=== PATIENT | male | born 1980 | race Caucasian/White ===

== ENCOUNTER 2017-09-13 10:01 | Emergency (ER) | payer SELFPAY ==
[2017-09-13 10:20] VITALS: BP 147/86
--- NOTE | 2017-09-13 22:03 | EKG REPORT ---
SEVERITY:- ABNORMAL ECG - SINUS RHYTHM NONSPECIFIC T ABNORMALITIES, INFERIOR LEADS : Confirmed by: Kiersten Pereira 13-Sep-2017 22:02:50
== END 2017-09-13 10:42 | disposition left against medical advice (07) ==
LOC: ER 10:01
DX: Z53.21 Procedure and treatment not carried out due to patient leaving prior to being seen by health care provider (principal)
CPT/HCPCS: 93005; 93010

== ENCOUNTER 2018-09-08 05:08 | Emergency (ER) | payer SELFPAY ==
[2018-09-08] MEDS ORDERED: KETOROLAC TROMETHAMINE INJ/PF 30 MG/1 ML SDV IV ONE (05:30)
--- NOTE | 2018-09-08 05:33 | ER Document Report ---
ED Medical Screen (RME) - General Chief Complaint: Upper Abdominal Pain Stated Complaint: RIB PAIN Time Seen by Provider: 09/08/18 05:25 Notes: Patient is a 38-year-old male that comes to the emergency department for chief complaint of right upper quadrant pain that began 2 hours ago. He points specifically to the right upper quadrant area, denies radiation. He denies nausea, vomiting, fever or chills. He had a normal bowel movement 1 hour ago. Denies any surgeries, denies any daily medications, reports infrequent alcohol. TRAVEL OUTSIDE OF THE [place] IN LAST 30 DAYS: No - Related Data Allergies/Adverse Reactions: No Known Allergies Allergy (Verified 09/08/18 05:21) Past Medical History - Immunizations Hx Diphtheria, Pertussis, Tetanus Vaccination: No Physical Exam - Vital signs Vitals: Temp Pulse Resp BP Pulse Ox 97.7 F 84 22 H 154/99 H 96 09/08/18 05:13 09/08/18 05:13 09/08/18 05:13 09/08/18 05:13 09/08/18 05:13 - General General appearance: Appears well In distress: None - Abdominal Tenderness: Tender - Mildly tender in the right upper quadrant, remaining abdomen benign Course - Vital Signs Vital signs: Temp Pulse Resp BP Pulse Ox 97.7 F 84 22 H 154/99 H 96 09/08/18 05:13 09/08/18 05:13 09/08/18 05:13 09/08/18 05:13 09/08/18 05:13
[2018-09-08 06:04] LABS: ABSOLUTE BASOPHILS # (AUTO) 0.1 10^3/uL (0.0-0.2); ABSOLUTE EOSINOPHILS # (AUTO) 0.2 10^3/uL (0.0-0.6); ABSOLUTE LYMPHOCYTES (AUTO) 2.2 10^3/uL (0.5-4.7); ABSOLUTE MONOCYTES (AUTO) 0.6 10^3/uL (0.1-1.4); ABSOLUTE NEUT (AUTO) 6.6 10^3/uL (1.7-8.2); BASOPHILS % (AUTO) 0.9 % (0-2); EOSINOPHILS % (AUTO) 2.1 % (0-6); HEMATOCRIT 49.7 % (37.9-51.0); HEMOGLOBIN 17.5 g/dL (13.5-17.0); LYMPHOCYTES % (AUTO) 22.7 % (13-45); MEAN CORPUSCULAR HGB CONC 35.1 g/dL (32.0-36.0); MEAN CORPUSCULAR VOLUME 88 fl (80-97); MONOCYTES % (AUTO) 6.6 % (3-13); PLATELET COUNT 131 10^3/uL (150-450); RED BLOOD COUNT 5.63 10^6/uL (4.35-5.55); SEGMENTED NEUTROPHILS % (AUTO) 67.7 % (42-78); TOTAL CELLS COUNTED % (AUTO) 100 %; WHITE BLOOD COUNT 9.8 10^3/uL (4.0-10.5)
--- NOTE | 2018-09-08 06:06 | ER Document Report ---
ED General - General Chief Complaint: Upper Abdominal Pain Stated Complaint: RIB PAIN Time Seen by Provider: 09/08/18 05:25 Notes: 38-year-old male with no significant past medical history presents with 2 hours of right upper quadrant pain, sharp, radiating under his rib, nonpleuritic without nausea vomiting but with positive anorexia. No fever. No history of gallbladder issues. No lower abdominal pain. No diarrhea foreign travel or abd ominal surgeries. TRAVEL OUTSIDE OF THE [place] IN LAST 30 DAYS: No - Related Data Allergies/Adverse Reactions: No Known Allergies Allergy (Verified 09/08/18 05:21) Past Medical History - Social History Smoking Status: Never Smoker Family History: Reviewed & Not Pertinent - Immunizations Hx Diphtheria, Pertussis, Tetanus Vaccination: No Review of Systems - Review of Systems Notes: REVIEW OF SYSTEMS GEN: Denies fever, chills, weight loss ENT: Denies sore throat, nasal discharge, ear pain EYES: Denies blurry vision, eye pain, discharge CV: Denies chest pain, palpitations, edema RESP: Denies cough, shortness of breath, wheezing GI: Abdominal pain MSK: Denies joint pain/swelling, edema, SKIN: Denies rash, skin lesions LYMPH: Denies swollen glands/lymph nodes NEURO: Denies headache, focal weakness or numbness, dizziness PSYCH: Denies depression, suicidal or homicidal ideation PHYSICAL EXAMINATION General: No acute distress, well-nourished Head: Atraumatic, normocephalic ENT: Mouth normal, oropharynx moist, no exudates or tonsillar enlargement Eyes: Conjunctiva normal, pupils equal, lids normal Neck: No JVD, supple, no guarding CVS: Normal rate, regular rhythm, no murmurs Resp: No resp distress, equal and normal breath sounds bilaterally GI: Nondistended, soft, upper quadrant tenderness to palpation, no rebound or guarding Ext: No deformities, no edema, normal range of motion in upper and lower ext Back: No CVA or midline TTP Skin: No rash, warm Lymphatic: No lymphadeopathy noted Neuro: Awake, alert. Face symmetric. GCS 15. Physical Exam - Vital signs Vitals: Temp Pulse Resp BP Pulse Ox 97.7 F 84 22 H 154/99 H 96 09/08/18 05:13 09/08/18 05:13 09/08/18 05:13 09/08/18 05:13 09/08/18 05:13 Course - Re-evaluation Re-evalutation: 09/08/18 07:46 Upper quadrant pain with mild tenderness no fever. Ultrasound shows stones. Labs are normal. Reassessed at 7:45 AMfeeling better. Nontender on repeat exam tolerated p.o. Discharge home cholelithiasis refer to surgery. I have discussed with the patient there likely diagnosis, aftercare plan, follow-up plans and my usual and customary return precautions. They verbalized understanding of this. - Vital Signs Vital signs: Temp Pulse Resp BP Pulse Ox 97.7 F 84 22 H 154/99 H 96 09/08/18 05:13 09/08/18 05:13 09/08/18 05:13 09/08/18 05:13 09/08/18 05:13 - Laboratory Result Diagrams: 09/08/18 05:50 09/08/18 05:50 Laboratory results interpreted by me: 09/08/18 09/08/18 05:50 05:50 RBC 5.63 H Hgb 17.5 H Plt Count 131 L Chloride 109 H Total Protein 6.2 L - Diagnostic Test Radiology reviewed: Image reviewed, Reports reviewed Discharge - Discharge Clinical Impression: Cholelithiasis Qualifiers: Cholelithiasis location: gallbladder Cholecystitis presence: without cholecystitis Biliary obstruction: without biliary obstruction Qualified Code(s): K80.20 - Calculus of gallbladder without cholecystitis without obstruction Condition: Good Disposition: HOME, SELF-CARE Instructions: Gallbladder Disease ([facility]) Referrals: SURGERY [Provider Group] - Follow up as needed
[2018-09-08 06:23] LABS: ALANINE AMINOTRANSFERASE 31 U/L (21-72); ALBUMIN 3.7 g/dL (3.5-5.0); ALKALINE PHOSPHATASE 61 U/L (38-126); ASPARTATE AMINO TRANSFERASE 20 U/L (17-59); BILIRUBIN,DIRECT 0.2 mg/dL (0.0-0.4); BILIRUBIN,TOTAL 0.5 mg/dL (0.2-1.3); BLOOD UREA NITROGEN 17 mg/dL (7-20); CALCIUM 8.9 mg/dL (8.4-10.2); GLUCOSE 100 mg/dL (75-110); LIPASE 198.3 U/L (23-300); POTASSIUM 4.1 mmol/L (3.6-5.0); TOTAL PROTEIN 6.2 g/dL (6.3-8.2)
[2018-09-08 06:40] LABS: ANION GAP 5 (5-19); CARBON DIOXIDE 26 mmol/L (22-30); CHLORIDE 109 mmol/L (98-107); SODIUM 139.7 mmol/L (137-145)
--- NOTE | 2018-09-08 07:20 | RADIOLOGY REPORT (SQ) ---
EXAM DESCRIPTION: US ABDOMEN LIMITED COMPLETED DATE/TME: 09/08/2018 05:30 CLINICAL HISTORY: 38 years Male, RUQ pain Comparison: None. LIMITATIONS: Bowel gas artifact. FINDINGS: Cholelithiasis, negative sonographic Ariza's test, liver, a 0.3-cm diameter common bile duct, no intrahepatic ductal dilation, 12-cm right kidney, obscured pancreas, visualized vasculature/abdominal aorta, and no significant ascites appear otherwise unremarkable. IMPRESSION: No acute findings. Cholelithiasis. Limitation.
[2018-09-08 09:11] VITALS: BP 115/78
== END 2018-09-08 09:12 | disposition home or self-care (01) ==
LOC: ER 05:08
DX: K80.20 Calculus of gallbladder without cholecystitis without obstruction (principal); R10.11 Right upper quadrant pain; R63.0 Anorexia
CPT/HCPCS: 99284; 96374; 36415; 83690; 85025; 80053; 76705; J1885

== ENCOUNTER 2018-11-29 03:25 | Emergency (ER) | payer SELFPAY ==
--- NOTE | 2018-11-29 04:36 | ER Document Report ---
Doctor's Note Notes: 11/29/18 04:32 I performed a quick triage evaluation the patient. Patient is 38-year-old male presents with complaint of right upper quadrant epigastric abdominal pain that started after eating spaghetti tonight. Some nausea. No vomiting. No fevers. No diarrhea. He had somewhat similar symptoms in the past and was told it is probably related to his gallbladder. He is never had any surgeries on his abdomen. He does not take any medications. He does smoke. Does not drink alcohol. On exam patient has some mild pain to palpation the right upper quadrant. Remainder of abdomen is nontender. Currently does not want any pain medicine at this time. CBC CMP and lipase have been ordered. Ultrasound of his gallbladder is been ordered. Dictation of this chart was performed using voice recognition software; therefore, there may be some unintended grammatical errors.
[2018-11-29 04:38] LABS: ABSOLUTE BASOPHILS # (AUTO) 0.1 10^3/uL (0.0-0.2); ABSOLUTE EOSINOPHILS # (AUTO) 0.2 10^3/uL (0.0-0.6); ABSOLUTE LYMPHOCYTES (AUTO) 2.4 10^3/uL (0.5-4.7); ABSOLUTE MONOCYTES (AUTO) 0.7 10^3/uL (0.1-1.4); ABSOLUTE NEUT (AUTO) 7.6 10^3/uL (1.7-8.2); BASOPHILS % (AUTO) 0.8 % (0-2); EOSINOPHILS % (AUTO) 2.1 % (0-6); HEMATOCRIT 47.7 % (37.9-51.0); HEMOGLOBIN 16.1 g/dL (13.5-17.0); LYMPHOCYTES % (AUTO) 21.9 % (13-45); MEAN CORPUSCULAR HGB CONC 33.8 g/dL (32.0-36.0); MEAN CORPUSCULAR VOLUME 89 fl (80-97); MONOCYTES % (AUTO) 6.7 % (3-13); PLATELET COUNT 138 10^3/uL (150-450); RED BLOOD COUNT 5.37 10^6/uL (4.35-5.55); RED CELL DISTRIBUTION WIDTH 13.5 % (11.5-14.0); SEGMENTED NEUTROPHILS % (AUTO) 68.5 % (42-78); TOTAL CELLS COUNTED % (AUTO) 100 %; WHITE BLOOD COUNT 11.1 10^3/uL (4.0-10.5)
[2018-11-29 05:00] LABS: ALANINE AMINOTRANSFERASE 28 U/L (21-72); ALBUMIN 3.7 g/dL (3.5-5.0); ALKALINE PHOSPHATASE 63 U/L (38-126); ANION GAP 8 (5-19); ASPARTATE AMINO TRANSFERASE 19 U/L (17-59); BILIRUBIN,DIRECT 0.2 mg/dL (0.0-0.4); BILIRUBIN,TOTAL 0.5 mg/dL (0.2-1.3); BLOOD UREA NITROGEN 15 mg/dL (7-20); CALCIUM 9.2 mg/dL (8.4-10.2); CARBON DIOXIDE 26 mmol/L (22-30); CHLORIDE 107 mmol/L (98-107); GLUCOSE 100 mg/dL (75-110); LIPASE 176.4 U/L (23-300); POTASSIUM 4.2 mmol/L (3.6-5.0); TOTAL PROTEIN 6.7 g/dL (6.3-8.2)
--- NOTE | 2018-11-29 05:08 | RADIOLOGY REPORT (SQ) ---
EXAM DESCRIPTION: US ABDOMEN DOPPLER LIMITED COMPLETED DATE/TME: 11/29/2018 04:23 CLINICAL HISTORY: 38 years, Male, RUQ pain COMPARISON: 09/08/2018 ultrasound TECHNIQUE: Limited right upper quadrant ultrasound LIMITATIONS: None. FINDINGS: Liver is homogenous in echotexture without focal lesion. The pancreas, abdominal aorta, inferior vena cava, right kidney are unremarkable. Multiple mobile gallstones. Sludge in the gallbladder lumen. Negative sonographic Ariza sign. No gallbladder wall thickening or pericholecystic fluid. CBD measures 4.5 mm. No ascites IMPRESSION: Sludge and stones in the gallbladder lumen. No sonographic evidence for cholecystitis copyright 2010 [employer]- All Rights Reserved
[2018-11-29 05:55] LABS: APPEARANCE,URINE CLEAR; BILIRUBIN,URINE NEGATIVE (NEGATIVE); COLOR,URINE YELLOW; GLUCOSE, URINE NEGATIVE (NEGATIVE); KETONES,URINE NEGATIVE (NEGATIVE); LEUKOCYTE ESTERASE,URINE NEGATIVE (NEGATIVE); NITRITE,URINE NEGATIVE (NEGATIVE); PROTEIN,URINE NEGATIVE (NEGATIVE); URINE SPECIFIC GRAVITY 1.027; UROBILINOGEN,URINE NEGATIVE mg/dL (<2.0)
[2018-11-29] MEDS ORDERED: KETOROLAC TROMETHAMINE 60 MG/2 ML SDV IM ONE (06:59)
--- NOTE | 2018-11-29 07:01 | ER Document Report ---
ED General - General Chief Complaint: Abdominal Pain Stated Complaint: UPPER GASTRIC PAIN Time Seen by Provider: 11/29/18 04:32 Notes: RME note: I performed a quick triage evaluation the patient. Patient is 38-year-old male presents with complaint of right upper quadrant epigastric abdominal pain that started after eating spaghetti tonight. Some nausea. No vomiting. No fevers. No diarrhea. He had somewhat similar symptoms in the past and was told it is probably related to his gallbladder. He is never had any surgeries on his abdomen. He does not take any medications. He does smoke. Does not drink alcohol. On exam patient has some mild pain to palpation the right upper quadrant. Remainder of abdomen is nontender. Currently does not want any pain medicine at this time. CBC CMP and lipase have been ordered. Ultrasound of his gallbladder is been ordered. MY HPI: Patient overall states his pain has much improved. I have discussed treatment modalities and patient is now wishing for pain medic patient does not have IV access, blood was drawn via straight stick. Discussed use of Toradol IM, patient in agreement with plan. TRAVEL OUTSIDE OF THE [place] IN LAST 30 DAYS: No - Related Data Allergies/Adverse Reactions: No Known Allergies Allergy (Verified 11/29/18 04:43) Past Medical History - General Information source: Patient - Social History Smoking Status: Current Every Day Smoker Frequency of alcohol use: Rare Drug Abuse: None Family History: Reviewed & Not Pertinent Patient has suicidal ideation: No Patient has homicidal ideation: No Renal/ Medical History: Reports: Hx Peritoneal Dialysis - Immunizations Hx Diphtheria, Pertussis, Tetanus Vaccination: No Review of Systems - Review of Systems Constitutional: denies: Fever EENT: No symptoms reported Cardiovascular: No symptoms reported Respiratory: No symptoms reported Gastrointestinal: See HPI Genitourinary: No symptoms reported Male Genitourinary: No symptoms reported Musculoskeletal: No symptoms reported Skin: No symptoms reported Hematologic/Lymphatic: No symptoms reported Neurological/Psychological: No symptoms reported Physical Exam - Notes Notes: GENERAL: Alert, interacts well. No acute distress. HEAD: Normocephalic, atraumatic. EYES: Pupils equal, round, and reactive to light. Extraocular movements intact. ENT: Oral mucosa moist, tongue midline. NECK: Full range of motion. Supple. Trachea midline. LUNGS: Clear to auscultation bilaterally, no wheezes, rales, or rhonchi. No respiratory distress. HEART: Regular rate and rhythm. No murmur ABDOMEN: Soft, minor right upper quadrant pain noted. Non-distended. Bowel sounds present in all 4 quadrants. No McBurney's point tenderness, no left lower quadrant pain noted. EXTREMITIES: Moves all 4 extremities spontaneously. No edema, normal radial and dorsalis pedis pulses bilaterally. No cyanosis. BACK: no cervical, thoracic, lumbar midline tenderness. No saddle anesthesia, normal distal neurovascular exam. NEUROLOGICAL: Alert and oriented x3. Normal speech. cranial nerves II through XII grossly intact PSYCH: Normal affect, normal mood. SKIN: Warm, dry, normal turgor. No rashes or lesions noted. Course - Re-evaluation Re-evalutation: 11/29/18 07:01 Abdomen Ultrasound 11/29/18 04:23 IMPRESSION: Sludge and stones in the gallbladder lumen. No sonographic evidence for cholecystitis copyright 2010 [employer] All Rights Reserved 11/29/18 07:01 Patient's labs show a slight leukocytosis of 11.1, CMP within normal limits, lipase negative, no signs of urinary tract infection. Patient ultrasound right upper quadrant as noted above. No signs of cholecystitis. Discussed this with patient at length at bedside. Discussed close follow-up with [facility] and [facility] as patient voices he does not have insurance. Also discussed potential follow-up with surgical asked Dr. Bansal who is on-call. Patient treated with IM Toradol in the emergency department, stable for discharge. - Laboratory Result Diagrams: 11/29/18 04:30 11/29/18 04:30 Laboratory results interpreted by me: 11/29/18 04:30 WBC 11.1 H Plt Count 138 L Discharge - Discharge Clinical Impression: Sludge in gallbladder Condition: Stable Disposition: HOME, SELF-CARE Instructions: Gallbladder Disease ([facility]) Additional Instructions: As we discussed you have been seen and treated in the emergency room for a gallbladder attack. At this point time your gallbladder does not appear infected. This is good as it does not emergently need to be removed. Please make sure you follow-up with [facility] or [facility] to clinics he can follow-up with without insurance for continued care. 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 Please follow-up with him for elective removal of your gallbladder. Please make sure you take [id number] Tylenol Motrin for generalized pain and return to the emergency room for any other concerns. [facility] - Follow up as needed [facility] [Provider Group] - Follow up as needed OSCAR BANSAL MD [ACTIVE STAFF] - Follow up as needed
[2018-11-29 07:50] VITALS: BP 125/73
== END 2018-11-29 08:22 | disposition home or self-care (01) ==
LOC: ER 03:25
DX: K83.9 Disease of biliary tract, unspecified (principal); R10.11 Right upper quadrant pain; R11.0 Nausea; F17.200 Nicotine dependence, unspecified, uncomplicated
CPT/HCPCS: 99284; 96372; 36415; 83690; 85025; 80053; 81001; 76705; 93976; J1885

== ENCOUNTER 2019-03-09 22:53 | Emergency (ER) | payer SELFPAY ==
--- NOTE | 2019-03-10 01:25 | ER Document Report ---
ED Medical Screen (RME) - General Chief Complaint: Abdominal Pain Stated Complaint: STOMACH PAIN Time Seen by Provider: 03/10/19 01:17 Mode of Arrival: Ambulatory Information source: Patient Notes: 38-year-old male presented to ED for complaint of right upper quadrant abdominal pain that started about 630 tonight. He states he last ate around noon. He states he has not had any nausea vomiting or diarrhea. He states he has had similar pain before and they told him he had gallstones but not cholecystitis and they did not remove his gallbladder. He states the only surgeries had his vasectomy. He does smoke a pack a day does not drink or do any drugs. 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 He is alert oriented respirations regular and unlabored. He does have tenderness to the right upper quadrant at this time. I have greeted and performed a rapid initial assessment of this patient. A comprehensive ED assessment and evaluation of the patient, analysis of test results and completion of medical decision making process will be conducted by an additional ED providers. Dictation of this chart was performed using voice recognition software; therefore, there may be some unintended grammatical errors. TRAVEL OUTSIDE OF THE [place] IN LAST 30 DAYS: No - Related Data Allergies/Adverse Reactions: No Known Allergies Allergy (Verified 03/09/19 23:15) Past Medical History Renal/ Medical History: Reports: Hx Peritoneal Dialysis - Immunizations Hx Diphtheria, Pertussis, Tetanus Vaccination: No Physical Exam - Vital signs Vitals: Temp Pulse Resp BP Pulse Ox 98.0 F 68 16 164/99 H 96 03/09/19 23:13 03/09/19 23:13 03/09/19 23:13 03/09/19 23:13 03/09/19 23:13 Course - Vital Signs Vital signs: Temp Pulse Resp BP Pulse Ox 98.0 F 68 16 164/99 H 96 03/09/19 23:13 03/09/19 23:13 03/09/19 23:13 03/09/19 23:13 03/09/19 23:13
[2019-03-10 02:28] LABS: ABSOLUTE BASOPHILS # (AUTO) 0.1 10^3/uL (0.0-0.2); ABSOLUTE EOSINOPHILS # (AUTO) 0.1 10^3/uL (0.0-0.6); ABSOLUTE LYMPHOCYTES (AUTO) 2.1 10^3/uL (0.5-4.7); ABSOLUTE MONOCYTES (AUTO) 0.6 10^3/uL (0.1-1.4); ABSOLUTE NEUT (AUTO) 9.6 10^3/uL (1.7-8.2); EOSINOPHILS % (AUTO) 1.1 % (0-6); HEMATOCRIT 49.6 % (37.9-51.0); HEMOGLOBIN 16.9 g/dL (13.5-17.0); LYMPHOCYTES % (AUTO) 16.8 % (13-45); MEAN CORPUSCULAR HEMOGLOBIN 30.2 pg (27.0-33.4); MEAN CORPUSCULAR VOLUME 89 fl (80-97); PLATELET COUNT 145 10^3/uL (150-450); RED BLOOD COUNT 5.59 10^6/uL (4.35-5.55); RED CELL DISTRIBUTION WIDTH 13.7 % (11.5-14.0); SEGMENTED NEUTROPHILS % (AUTO) 76.1 % (42-78); TOTAL CELLS COUNTED % (AUTO) 100 %; WHITE BLOOD COUNT 12.6 10^3/uL (4.0-10.5)
[2019-03-10 02:48] LABS: ALBUMIN 4.2 g/dL (3.5-5.0); ALKALINE PHOSPHATASE 74 U/L (38-126); ANION GAP 9 (5-19); ASPARTATE AMINO TRANSFERASE 23 U/L (17-59); BILIRUBIN,DIRECT 0.4 mg/dL (0.0-0.4); BILIRUBIN,TOTAL 0.7 mg/dL (0.2-1.3); BLOOD UREA NITROGEN 11 mg/dL (7-20); CALCIUM 9.1 mg/dL (8.4-10.2); CARBON DIOXIDE 23 mmol/L (22-30); CHLORIDE 107 mmol/L (98-107); GLUCOSE 109 mg/dL (75-110); POTASSIUM 3.9 mmol/L (3.6-5.0); TOTAL PROTEIN 7.3 g/dL (6.3-8.2)
[2019-03-10] MEDS ORDERED: ONDANSETRON HCL INJ/PF 4 MG/2 ML SDV IV ONE (04:07)
[2019-03-10] MEDS ORDERED: NORMAL SALINE 1000 ML 1,000 ML IV ONE (04:07)
[2019-03-10] MEDS ORDERED: FENTANYL CITRATE INJ/PF 100 MCG/2 ML AMPUL IV ONE (04:07)
[2019-03-10 04:51] LABS: APPEARANCE,URINE CLEAR; BILIRUBIN,URINE NEGATIVE (NEGATIVE); COLOR,URINE YELLOW; GLUCOSE, URINE NEGATIVE (NEGATIVE); KETONES,URINE NEGATIVE (NEGATIVE); LEUKOCYTE ESTERASE,URINE NEGATIVE (NEGATIVE); NITRITE,URINE NEGATIVE (NEGATIVE); PROTEIN,URINE NEGATIVE (NEGATIVE); URINE SPECIFIC GRAVITY 1.014; UROBILINOGEN,URINE NEGATIVE mg/dL (<2.0)
--- NOTE | 2019-03-10 05:12 | RADIOLOGY REPORT (SQ) ---
EXAM DESCRIPTION: US ABDOMEN LIMITED COMPLETED DATE/TME: 03/10/2019 01:18 CLINICAL HISTORY: 38 years, Male, ruq abdominal pain hx gall stones COMPARISON: 11/29/2018 TECHNIQUE: Grayscale and Doppler sonogram of the abdomen LIMITATIONS: None. FINDINGS: Pancreas: Not well seen Aorta: Visualized portion is unremarkable. IVC: Visualized portion is unremarkable. Liver: Parenchyma: Homogenous echotexture. Length: 16.3 cm. Main portal vein: Normal directional flow. Gallbladder: Intraluminal gallstones: Positive Wall: No thickening. Sonographic Ariza sign: Negative. Common bile duct: Diameter: 0.3 cm. Right kidney: Length: 12.7 x 5.3 x 5.7 there is a 1.3 x 1.2 x 1.1 cm cyst. No hydronephrosis. IMPRESSION: Cholelithiasis without evidence of acute cholecystitis.. copyright 2010 [employer]- All Rights Reserved
--- NOTE | 2019-03-10 05:55 | ER Document Report ---
ED GI/ - General Chief Complaint: Abdominal Pain Stated Complaint: STOMACH PAIN Time Seen by Provider: 03/10/19 01:17 Mode of Arrival: Ambulatory Notes: RME NOTE: 38-year-old male presented to ED for complaint of right upper quadrant abdominal pain that started about 630 tonight. He states he last ate around noon. He states he has not had any nausea vomiting or diarrhea. He states he has had similar pain before and they told him he had gallstones but not cholecystitis and they did not remove his gallbladder. He states the only surgeries had his vasectomy. He does smoke a pack a day does not drink or do any drugs. 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 He is alert oriented respirations regular and unlabored. He does have tenderness to the right upper quadrant at this time. MY HPI: Patient continues to deny nausea, vomiting, diarrhea, fever, dysuria. TRAVEL OUTSIDE OF THE [place] IN LAST 30 DAYS: No - Related Data Allergies/Adverse Reactions: No Known Allergies Allergy (Verified 03/09/19 23:15) Past Medical History - General Information source: Patient - Social History Smoking Status: Current Every Day Smoker Family History: Reviewed & Not Pertinent Patient has suicidal ideation: No Patient has homicidal ideation: No Renal/ Medical History: Denies: Hx Peritoneal Dialysis - Immunizations Hx Diphtheria, Pertussis, Tetanus Vaccination: No Review of Systems - Review of Systems Constitutional: denies: Fever EENT: No symptoms reported Cardiovascular: No symptoms reported Respiratory: No symptoms reported Gastrointestinal: See HPI Genitourinary: No symptoms reported Male Genitourinary: No symptoms reported Musculoskeletal: No symptoms reported Skin: No symptoms reported Hematologic/Lymphatic: No symptoms reported Neurological/Psychological: No symptoms reported Physical Exam - Vital signs Vitals: Temp Pulse Resp BP Pulse Ox 98.0 F 68 16 164/99 H 96 03/09/19 23:13 03/09/19 23:13 03/09/19 23:13 03/09/19 23:13 03/09/19 23:13 - Notes Notes: GENERAL: Alert, interacts well. No acute distress. HEAD: Normocephalic, atraumatic. EYES: Pupils equal, round, and reactive to light. Extraocular movements intact. ENT: Oral mucosa moist, tongue midline. NECK: Full range of motion. Supple. Trachea midline. LUNGS: Clear to auscultation bilaterally, no wheezes, rales, or rhonchi. No respiratory distress. HEART: Regular rate and rhythm. No murmur ABDOMEN: Soft, mild right upper quadrant abdominal pain noted. Non-distended. Bowel sounds present in all 4 quadrants. No McBurney's point tenderness. EXTREMITIES: Moves all 4 extremities spontaneously. No edema, normal radial and dorsalis pedis pulses bilaterally. No cyanosis. BACK: no cervical, thoracic, lumbar midline tenderness. No saddle anesthesia, normal distal neurovascular exam. No CVA tenderness noted bilaterally NEUROLOGICAL: Alert and oriented x3. Normal speech. cranial nerves II through XII grossly intact PSYCH: Normal affect, normal mood. SKIN: Warm, dry, normal turgor. No rashes or lesions noted. Course - Re-evaluation Re-evalutation: 03/10/19 05:53 Laboratory 03/10/19 03/10/19 03/10/19 02:15 02:15 03:30 WBC 12.6 H RBC 5.59 H Hgb 16.9 Hct 49.6 MCV 89 MCH 30.2 MCHC 34.0 RDW 13.7 Plt Count 145 L Seg Neutrophils % 76.1 Lymphocytes % 16.8 Monocytes % 5.0 Eosinophils % 1.1 Basophils % 1.0 Absolute Neutrophils 9.6 H Absolute Lymphocytes 2.1 Absolute Monocytes 0.6 Absolute Eosinophils 0.1 Absolute Basophils 0.1 Sodium 138.6 Potassium 3.9 Chloride 107 Carbon Dioxide 23 Anion Gap 9 BUN 11 Creatinine 0.83 Est GFR ( Amer) > 60 Est GFR (Non-Af Amer) > 60 Glucose 109 Calcium 9.1 Total Bilirubin 0.7 Direct Bilirubin 0.4 Neonat Total Bilirubin Not Reportable Neonat Direct Bilirubin Not Reportable Neonat Indirect Bili Not Reportable AST 23 ALT 26 Alkaline Phosphatase 74 Total Protein 7.3 Albumin 4.2 Lipase 144.2 Urine Color YELLOW Urine Appearance CLEAR Urine pH 5.0 Ur Specific [place] 1.014 Urine Protein NEGATIVE Urine Glucose (UA) NEGATIVE Urine Ketones NEGATIVE Urine Blood SMALL H Urine Nitrite NEGATIVE Urine Bilirubin NEGATIVE Urine Urobilinogen NEGATIVE Ur Leukocyte Esterase NEGATIVE Urine WBC (Auto) 1 Urine RBC (Auto) 0 Urine Mucus (Auto) RARE Urine Ascorbic Acid NEGATIVE Abdomen Ultrasound 03/10/19 01:18 IMPRESSION: Cholelithiasis without evidence of acute cholecystitis.. copyright 2010 [employer]- All Rights Reserved After treatments in the emergency department patient states he overall feels a lot better. Patient's ultrasound reveals cholelithiasis, no signs of cholecystitis. I discussed with patient need for outpatient follow-up. Discussed use of [facility], [facility] as well as surgical referral. At this time will discharge with return precautions and follow-up recommenda tions. Verbal discharge instructions given a the bedside and opportunity for questions given. Medication warnings reviewed. Patient is in agreement with this plan and has verbalized understanding of return precautions and the need for primary care follow-up in the next 24-72 hours. This medical record was dictated with voice recognizing software. There may be grammatical, syntax errors that are unintended. - Vital Signs Vital signs: Temp Pulse Resp BP Pulse Ox 98.7 F 72 16 146/88 H 96 03/10/19 05:02 03/10/19 05:02 03/10/19 05:02 03/10/19 05:02 03/10/19 05:02 - Laboratory Result Diagrams: 03/10/19 02:15 03/10/19 02:15 Laboratory results interpreted by me: 03/10/19 03/10/19 02:15 03:30 WBC 12.6 H RBC 5.59 H Plt Count 145 L Absolute Neutrophils 9.6 H Urine Blood SMALL H Discharge - Discharge Clinical Impression: Cholelithiasis Qualifiers: Cholelithiasis location: other site Biliary obstruction: without biliary obstruction Qualified Code(s): K80.80 - Other cholelithiasis without obstruction Condition: Stable Disposition: HOME, SELF-CARE Instructions: Gallbladder Disease ([facility]) Additional Instructions: As we discussed you have been seen and treated in the emergency department for stones in your gallbladder. Fortunately there are no signs of infections. Please make sure you follow-up with [facility] in the next 24 to 48 hours. Phone numbers for surgeon in the area will also be provided in this packet. Please return to the emergency room should you have uncontrolled pain, vomiting, fevers, any other concerns. Referrals: ANNAMARIA STERLING MD [ACTIVE STAFF] - Follow up as needed [facility] [Provider Group] - Follow up as needed [facility] [Provider Group] - Follow up as needed
[2019-03-10 06:37] VITALS: BP 132/85
== END 2019-03-10 06:37 | disposition home or self-care (01) ==
LOC: ER 22:53
DX: K80.20 Calculus of gallbladder without cholecystitis without obstruction (principal); R10.11 Right upper quadrant pain; F17.200 Nicotine dependence, unspecified, uncomplicated
CPT/HCPCS: 36415; 83690; 85025; 80053; 81001; 76705; J3010; J2405; J7030; 96361; 96374; 96375; 99284

== ENCOUNTER 2019-03-10 00:39 | Emergency (ER) | payer SELFPAY ==
[2019-03-10 00:45] VITALS: BP 172/98
== END 2019-03-10 03:13 | disposition left against medical advice (07) ==
LOC: ER 00:39
DX: Z53.21 Procedure and treatment not carried out due to patient leaving prior to being seen by health care provider (principal)

== ENCOUNTER 2019-05-27 06:35 | Emergency (ER) | payer SELFPAY ==
[2019-05-27 07:31] LABS: ABSOLUTE BASOPHILS # (AUTO) 0.1 10^3/uL (0.0-0.2); ABSOLUTE EOSINOPHILS # (AUTO) 0.2 10^3/uL (0.0-0.6); ABSOLUTE LYMPHOCYTES (AUTO) 2.8 10^3/uL (0.5-4.7); ABSOLUTE MONOCYTES (AUTO) 0.9 10^3/uL (0.1-1.4); ABSOLUTE NEUT (AUTO) 5.5 10^3/uL (1.7-8.2); BASOPHILS % (AUTO) 0.8 % (0-2); EOSINOPHILS % (AUTO) 2.5 % (0-6); HEMATOCRIT 48.9 % (37.9-51.0); HEMOGLOBIN 16.7 g/dL (13.5-17.0); LYMPHOCYTES % (AUTO) 29.4 % (13-45); MEAN CORPUSCULAR HEMOGLOBIN 30.4 pg (27.0-33.4); MEAN CORPUSCULAR HGB CONC 34.1 g/dL (32.0-36.0); MEAN CORPUSCULAR VOLUME 89 fl (80-97); MONOCYTES % (AUTO) 9.1 % (3-13); PLATELET COUNT 135 10^3/uL (150-450); RED BLOOD COUNT 5.49 10^6/uL (4.35-5.55); RED CELL DISTRIBUTION WIDTH 13.4 % (11.5-14.0); SEGMENTED NEUTROPHILS % (AUTO) 58.2 % (42-78); TOTAL CELLS COUNTED % (AUTO) 100 %; WHITE BLOOD COUNT 9.5 10^3/uL (4.0-10.5)
--- NOTE | 2019-05-27 07:39 | EKG REPORT ---
SEVERITY:- NORMAL ECG - SINUS RHYTHM : Confirmed by: Jarret Feliz MD 27-May-2019 07:39:32
[2019-05-27] MEDS ORDERED: KETOROLAC TROMETHAMINE INJ/PF 30 MG/1 ML SDV IV ONE (07:40)
[2019-05-27] MEDS ORDERED: MORPHINE SULFATE 10 MG/ML INJ IV ONE (07:40)
[2019-05-27] MEDS ORDERED: ONDANSETRON HCL INJ/PF 4 MG/2 ML SDV IV ONE (07:40)
[2019-05-27 07:44] LABS: ALBUMIN 4.2 g/dL (3.5-5.0); ALKALINE PHOSPHATASE 62 U/L (38-126); ANION GAP 9 (5-19); ASPARTATE AMINO TRANSFERASE 27 U/L (17-59); BILIRUBIN,DIRECT 0.1 mg/dL (0.0-0.4); BILIRUBIN,TOTAL 0.7 mg/dL (0.2-1.3); BLOOD UREA NITROGEN 18 mg/dL (7-20); CALCIUM 9.2 mg/dL (8.4-10.2); CARBON DIOXIDE 25 mmol/L (22-30); CHLORIDE 106 mmol/L (98-107); GLUCOSE 105 mg/dL (75-110); POTASSIUM 4.1 mmol/L (3.6-5.0); TOTAL PROTEIN 7.3 g/dL (6.3-8.2)
--- NOTE | 2019-05-27 07:47 | ER Document Report ---
ED General - General Chief Complaint: Abdominal Pain Stated Complaint: FLANK PAIN Time Seen by Provider: 05/27/19 07:29 TRAVEL OUTSIDE OF THE [place] IN LAST 30 DAYS: No - HPI Notes: Patient is a 38-year-old male who presents emergency department for evaluation of right upper quadrant pain. He states to me "it is my gallstones." He states pain started about 3 hours ago. He rates it an 8 out of 10. Nothing seems to make it better or worse. He does have some mild associated nausea. He states he has not yet followed up with surgery or anyone in regards to his gallbladder, he does not currently have insurance. Normal bowel movements. No fevers. No yellowing of the skin or eyes. No vanessa colored stools. - Related Data Allergies/Adverse Reactions: No Known Allergies Allergy (Verified 03/09/19 23:15) Past Medical History - General Information source: Patient - Social History Smoking Status: Current Every Day Smoker Family History: Reviewed & Not Pertinent Patient has suicidal ideation: No Patient has homicidal ideation: No GI Medical History: Reports: Other - Cholelithiasis - Immunizations Hx Diphtheria, Pertussis, Tetanus Vaccination: No Review of Systems - Review of Systems Constitutional: No symptoms reported EENT: No symptoms reported Cardiovascular: No symptoms reported Respiratory: No symptoms reported Gastrointestinal: See HPI Genitourinary: No symptoms reported Musculoskeletal: No symptoms reported Skin: No symptoms reported Neurological/Psychological: No symptoms reported Physical Exam - Vital signs Vitals: Temp Pulse Resp BP Pulse Ox 97.6 F 68 22 H 184/116 H 99 05/27/19 06:48 05/27/19 06:48 05/27/19 06:48 05/27/19 06:48 05/27/19 06:48 - Notes Notes: Vital signs reviewed, please refer to chart. Head is normocephalic, atraumatic. Pupils equal round, reactive to light. Neck is supple without meningismus. Heart is regular rate and rhythm. Lungs are clear to auscultation bilaterally. Abdomen is soft, minimally tender in the right upper quadrant without rebound or guarding, normoactive bowel sounds throughout. Extremities without cyanosis, clubbing. Posterior calves are nontender. Peripheral pulses are equal. Skin is warm and dry. Patient is awake, alert, neurological exam is nonfocal. Course - Re-evaluation Re-evalutation: 05/27/19 07:45 Patient presents emergency department for evaluation. He states his symptoms are consistent with biliary colic/cholelithiasis. At this point, he has no si gnificant signs of cholecystitis or biliary obstruction. He is counseled on avoiding fatty and greasy foods. He is counseled on the fact that he needs to follow-up with surgery. He is told to quit smoking, and also to keep an eye on his blood pressure, as it is markedly elevated here. He voiced understanding to all of this. His symptoms were treated here, will send him home with nausea medicine, anti-inflammatories, small amount of [place], and referral to surgery and [facility]. He is to return to the ED with worsening. 05/27/19 09:22 Urinalysis unremarkable - Vital Signs Vital signs: Temp Pulse Resp BP Pulse Ox 97.6 F 68 22 H 184/116 H 99 05/27/19 06:48 05/27/19 06:48 05/27/19 06:48 05/27/19 06:48 05/27/19 06:48 - Laboratory Result Diagrams: 05/27/19 07:08 05/27/19 07:08 Laboratory results interpreted by me: 05/27/19 05/27/19 07:08 09:01 Plt Count 135 L Urine Blood SMALL H Discharge - Discharge Clinical Impression: Biliary colic Condition: Stable Disposition: HOME, SELF-CARE Instructions: Abdominal Pain ([facility]), Gallbladder Disease ([facility]) Additional Instructions: Rest and stay well-hydrated with small, frequent sips of fluids. Follow-up with surgery in the [facility]. Avoid fatty and greasy foods as discussed. Take medications as needed for pain and nausea. If you develop fevers, intractable vomiting, yellow of the skin or eyes, or any other concerning symptoms, return immediately to the emergency department for evalu ation. Forms: Elevated Blood Pressure Referrals: [facility] [NO LOCAL MD] - Follow up as needed ANNAMARIA STERLING MD [ACTIVE STAFF] - Follow up as needed
[2019-05-27 09:13] LABS: APPEARANCE,URINE CLEAR; BILIRUBIN,URINE NEGATIVE (NEGATIVE); COLOR,URINE YELLOW; GLUCOSE, URINE NEGATIVE (NEGATIVE); KETONES,URINE NEGATIVE (NEGATIVE); LEUKOCYTE ESTERASE,URINE NEGATIVE (NEGATIVE); NITRITE,URINE NEGATIVE (NEGATIVE); PROTEIN,URINE NEGATIVE (NEGATIVE); UROBILINOGEN,URINE NEGATIVE mg/dL (<2.0)
[2019-05-27] MEDS ORDERED: ONDANSETRON ODT 4 MG TAB (6 TAB/ER DISP) PO PRN (09:24)
[2019-05-27 10:10] VITALS: BP 147/79
== END 2019-05-27 10:17 | disposition home or self-care (01) ==
LOC: ER 06:35
DX: K80.50 Calculus of bile duct without cholangitis or cholecystitis without obstruction (principal); R10.9 Unspecified abdominal pain; R10.11 Right upper quadrant pain; R11.0 Nausea; F17.200 Nicotine dependence, unspecified, uncomplicated
CPT/HCPCS: 93005; 36415; 83690; 85025; 80053; 81001; 93010; J1885; J2270; J2405

== ENCOUNTER 2020-07-23 23:36 | Emergency (ER) | payer SELFPAY ==
[2020-07-24 02:32] LABS: ABSOLUTE BASOPHILS # (AUTO) 0.1 10^3/uL (0.0-0.2); ABSOLUTE EOSINOPHILS # (AUTO) 0.3 10^3/uL (0.0-0.6); ABSOLUTE LYMPHOCYTES (AUTO) 2.6 10^3/uL (0.5-4.7); ABSOLUTE MONOCYTES (AUTO) 1.1 10^3/uL (0.1-1.4); ABSOLUTE NEUT (AUTO) 12.6 10^3/uL (1.7-8.2); BASOPHILS % (AUTO) 0.7 % (0-2); EOSINOPHILS % (AUTO) 1.8 % (0-6); HEMATOCRIT 48.7 % (37.9-51.0); HEMOGLOBIN 16.9 g/dL (13.5-17.0); LYMPHOCYTES % (AUTO) 15.5 % (13-45); MEAN CORPUSCULAR HEMOGLOBIN 30.8 pg (27.0-33.4); MEAN CORPUSCULAR HGB CONC 34.6 g/dL (32.0-36.0); MEAN CORPUSCULAR VOLUME 89 fl (80-97); MONOCYTES % (AUTO) 6.5 % (3-13); PLATELET COUNT 148 10^3/uL (150-450); RED BLOOD COUNT 5.48 10^6/uL (4.35-5.55); RED CELL DISTRIBUTION WIDTH 13.1 % (11.5-14.0); SEGMENTED NEUTROPHILS % (AUTO) 75.5 % (42-78); TOTAL CELLS COUNTED % (AUTO) 100 %; WHITE BLOOD COUNT 16.6 10^3/uL (4.0-10.5)
[2020-07-24 02:37] LABS: APPEARANCE,URINE SLIGHTLY-CLOUDY; BILIRUBIN,URINE NEGATIVE (NEGATIVE); CALCIUM OXALATE CRYSTALS,URINE RARE /HPF; COLOR,URINE YELLOW; GLUCOSE, URINE NEGATIVE (NEGATIVE); KETONES,URINE NEGATIVE (NEGATIVE); LEUKOCYTE ESTERASE,URINE NEGATIVE (NEGATIVE); NITRITE,URINE NEGATIVE (NEGATIVE); PROTEIN,URINE NEGATIVE (NEGATIVE); URINE SPECIFIC GRAVITY 1.031
[2020-07-24 02:41] LABS: ALBUMIN 4.3 g/dL (3.5-5.0); ALKALINE PHOSPHATASE 73 U/L (38-126); ANION GAP 9 (5-19); ASPARTATE AMINO TRANSFERASE 22 U/L (17-59); BILIRUBIN,DIRECT 0.2 mg/dL (0.0-0.4); BILIRUBIN,TOTAL 0.5 mg/dL (0.2-1.3); BLOOD UREA NITROGEN 13 mg/dL (7-20); CALCIUM 9.5 mg/dL (8.4-10.2); CARBON DIOXIDE 25 mmol/L (22-30); CHLORIDE 105 mmol/L (98-107); GLUCOSE 100 mg/dL (75-110); POTASSIUM 4.3 mmol/L (3.6-5.0); TOTAL PROTEIN 7.4 g/dL (6.3-8.2)
[2020-07-24] MEDS ORDERED: ONDANSETRON HCL INJ/PF 4 MG/2 ML SDV IV ONE (04:25)
[2020-07-24] MEDS ORDERED: KETOROLAC TROMETHAMINE INJ/PF 30 MG/1 ML SDV IV ONE (04:25)
[2020-07-24] MEDS ORDERED: NORMAL SALINE 1000 ML 1,000 ML IV ONE (04:25)
--- NOTE | 2020-07-24 04:36 | ER Document Report ---
ED General - General Chief Complaint: Abdominal Pain Stated Complaint: ABDOMINAL PAIN Time Seen by Provider: 07/24/20 04:06 TRAVEL OUTSIDE OF THE [place] IN LAST 30 DAYS: No - HPI Context: Chief Complaint: [Right upper quadrant pain] [This is a 40-year-old male who presents to the emergency department complaining of right upper quadrant pain that has been intermittent for the past 2 days. Patient does associate onset of symptoms as occurring after he has eaten. Patient describes the pain as being "under my ribs" on the right side. Patient denies chest pain, shortness of breath, fever, chills, cough, history of COVID- 19 infection, exposure to persons positive for COVID-19 or persons under inves tigation for COVID-19 ] History obtained from [patient] Symptoms began:[2 days ago] Onset: [Sudden] Timing: [After eating] Quality: [Sharp] Intensity: [3 out of 5] Location: [Right upper quadrant] Radiation: [Right upper quadrant pain radiating to right side of back] Aggravating factors: Eating Relieving factors: [none] [Denies] SOB [Denies] nausea [Denies] vomiting [Denies] sweats [Denies] fever [Denies] cough [Denies] calf or leg swelling or pain - Related Data Allergies/Adverse Reactions: No Known Allergies Allergy (Verified 03/09/19 23:15) Past Medical History - General Information source: Patient - Social History Smoking Status: Current Every Day Smoker Family History: Reviewed & Not Pertinent Renal/ Medical History: Reports: Hx Peritoneal Dialysis - Immunizations Hx Diphtheria, Pertussis, Tetanus Vaccination: No Review of Systems - Review of Systems Notes: Review of systems as below unless otherwise stated in HPI. CONSTITUTIONAL [No] fever, [No] chills. EYES [No] eye pain. ENT [No] URI symptoms, [No] sore throat, [No] ear pain. CARDIOVASCULAR [No] chest pain, [No] palpitations, [No] edema. RESPIRATORY [No] Cough, [No] SOB, [No] wheezing. GASTROINTESTINAL Positive abdominal pain, [No] nausea, [No] Diarrhea, [No] Vomiting, [No] constipation, [No] melena, [No] rectal bleeding. GENITOURINARY [No] dysuria, [No] urinary frequency, [No] hematuria, [No] urinary urgency MUSCULOSKELETAL [No] Back pain. SKIN [No] Rash. NEUROLOGIC [No] Headache, [No] recent seizures, [No] paralysis,[No] parathesias. ENDOCRINE [No] polyuria. HEMO/LYMPATIC [No] easy brusing PSYCHIATRIC [No] depression. Physical Exam - Vital signs Vitals: Temp Pulse Resp BP Pulse Ox 97.7 F 77 15 179/89 H 96 07/23/20 23:48 07/23/20 23:48 07/23/20 23:48 07/23/20 23:48 07/23/20 23:48 - Notes Notes: CONSTITUTIONAL [Vital signs reviewed, Patient appears comfortable, Alert and oriented X 3, Normal stature.] HEAD [Atraumatic, Normocephalic.] EYES [Eyes are normal to inspection, No discharge from eyes, Extraocular muscles intact, Sclera are normal, Conjunctiva are normal.] ENT [External ears normal to inspection, Nose examination normal, Mouth normal to inspection.] NECK [Normal ROM, No jugular venous distention, No meningeal signs, ] RESPIRATORY CHEST [Chest is nontender, Breath sounds normal, No respiratory distress.] CARDIOVASCULAR [RRR, No murmurs, Normal S1 S2, No rub, No gallop.] ABDOMEN [Abdomen is positive to palpation in the right upper quadrant, positive Ariza sign, no pulsatile masses, No other masses, Bowel sounds normal, No distension, No peritoneal signs, No hernias.] BACK [There is no CVA Tenderness, There is no tenderness to palpation, Normal inspection.] UPPER EXTREMITY [Inspection normal, No cyanosis, No clubbing, No edema, LOWER EXTREMITY [Inspection normal, No cyanosis, No clubbing, No edema, No calf tenderness, NEURO [No focal motor deficits, No focal sensory deficits, Speech normal.] SKIN [Skin is warm, Skin is dry, Skin is normal color.] PSYCHIATRIC [Normal affect. ] Course - Re-evaluation Re-evalutation: 07/24/20 06:07 Patient states he feels fine now and denies pain. Results of ED MSE discussed with patient and patient's significant other. Emergency signs and symptoms, reasons to return to the emergency department discussed with patient and patient's significant other. - Vital Signs Vital signs: Temp Pulse Resp BP Pulse Ox 97.7 F 77 15 179/89 H 96 07/23/20 23:48 07/23/20 23:48 07/23/20 23:48 07/23/20 23:48 07/23/20 23:48 - Laboratory Results Result Diagrams: 07/24/20 02:06 07/24/20 02:06 Laboratory Results Interpreted: 07/24/20 07/24/20 02:06 02:06 WBC 16.6 H Plt Count 148 L Absolute Neuts (auto) 12.6 H Urine Urobilinogen 2.0 H Critical Laboratory Results Reviewed: No Critical Results Attending or Supervising Physician who Reviewed Labs: BIENVENIDO TOSCANO IV - Radiology Results Critical Radiology Results Reviewed: No Critical Results Attending or Supervising Physician who Reviewed Radiology: BIENVENIDO TOSCANO IV - Ultrasound shows evidence of cholelithiasis presentation and an overall well- appearing patient in no acute distress who complains of generalized weakness. At time of evaluation, patient's vitals are within normal limits and they are denying any additional acute complaints. Physical examination without focal findings. No neurologic deficits. They deny any chest pain, shortness of breath, nausea, vomiting, or diarrhea. No dysuria or fever. Basic laboratories including and urinalysis are unremarkable. Troponin is also negative. Low clinical suspicion for ACS, occult pneumonia, acute intra-abdominal pathology, stroke, or transient ischemic attack based on clinical history, examination, and laboratories. They have tolerated oral intake without difficulty. I have discussed the importance of close outpatient follow-up as well as the need to return to emergency room immediately should they have any new or worsening symptoms. The patient and surrogate's are in agreement with this plan and verbalized indications for return to emergency department. Definite evidence of cholecystitis. Common bile duct is between 4 and 5 mm. - EKG Interpretation by Me Additional EKG results interpreted by me: 07/24/20 05:29 EKG obtained on 07/24/2020 at 0524 hrs. was interpreted by this MD. Findings: Normal sinus rhythm, rate 64, normal axis, PA interval appears to be within normal limits, P waves preceding QRS complexes, QRS complexes appear narrow, QTC is 430, there are no obvious patterns of ST segment elevation, depression or reciprocal changes seen to suggest acute myocardial ischemia or infarction. When compared to prior EKG from 05/27/2019 gross morphology of the 2 EKGs appears the same. Impression normal sinus rhythm with nonspecific ST segments. - Consults Dr. Lacey Time consulted: 05:57 - Dr. Lacey stated patient could call his office to schedule an outpatient appointment for follow-up. Reason for consultation: 07/24/20 06:06 Cholelithiasis Consulted provider: follow-up in office Discharge - Discharge Clinical Impression: Cholelithiasis Qualifiers: Cholelithiasis location: gallbladder Cholecystitis presence: without cholecystitis Biliary obstruction: without biliary obstruction Qualified Code(s): K80.20 - Calculus of gallbladder without cholecystitis without obstruction Condition: Stable Disposition: HOME, SELF-CARE Additional Instructions: Return to the Emergency Department without delay if any worse. HOME CARE INSTRUCTIONS & INFORMATION: Thank you for choosing us for your medical needs. We hope you're satisfied with the care you received. After you leave, you must properly care for your problem and, at the same time, observe its progress. Any condition can change. Some illnesses can change rapidly over hours or days. If your condition worsens, return to the Emergency Department or see your physician promptly. ABOUT YOUR X-RAYS AND EKG'S: If you had an EKG or X-rays taken, they have been read by the Emergency Physician. The X-rays and EKG's will also be read by a Radiologist or Rat Farmer within 24 hours. If discrepancies are noted, you will be notified by telephone. Please be certain the ED has a correct telephone number & address where you can be reached. Also, realize that some fractures or abnormalities do not show up on initial X-rays. If your symptoms continue, see your physician. ABOUT YOUR LABORATORY TEST: If you had laboratory tests, the results have been reviewed by the Emergency Physician. Some test results (for example cultures) may not be available for several days. You will be contacted if any test result shows you need additional treatment. Please be certain the ED has a correct telephone number and address where you can be reached. ABOUT YOUR MEDICATIONS: You will receive instructions on how to take your medicine on the prescription label you receive. Additional information may be provided by the Pharmacy. If you have questions afterwards, call the ED for clarification or further instructions. Some prescribed medications may cause drowsiness. Do not perform tasks such as driving a car or operating machinery without consulting your Pharmacist. If you feel you need a refill of pain m edication, your condition will need re-evaluation. Please do not call for a refill of any medication. ABOUT YOUR SIGNATURE: Signature of this document acknowledges to followin. Understanding that you received emergency treatment and that you may be released before al medical problems are known or treated. Please be certain the ED has a correct phone number & address where you can be reached. 2. Acknowledgement that you will arrange for follow-up care as recommended. 3. Authorization for the Emergency Physician to provide information to your follow-up Physician in order to maximize your care. AT ANY TIME, IF YOUR SYMPTOMS CHANGE SIGNIFICANTLY OR WORSEN OR YOU DEVELOP NEW SYMPTOMS, RETURN TO THE EMERGENCY DEPARTMENT IMMEDIATELY FOR RE-EVALUATION. OUR GOAL IS TO PROVIDE EXCELLENT MEDICAL CARE! WE HOPE THAT WE HAVE MET YOUR EXPECTATIONS DURING YOUR EMERGENCY DEPARTMENT VISIT AND THAT YOU FEEL YOU HAVE RECEIVED EXCELLENT CARE! Gallbladder Disease Your evaluation shows evidence of gallbladder disease. The gallbladder is a pouch under the liver which stores bile. Stones, infection, or irritation of the gallbladder cause attacks of pain. Certain foods -- fats in particular -- may provoke attacks. The usual treatment for gallbladder disease is surgical removal of the gallbladder -- called a cholecystectomy. You will be referred to a physician qualified to advise you on the best treatment for your problem. Hospitalization is not necessary. Take clear liquids only until you are pa infree. After that, you should stay on a low-fat diet, with frequent SMALL meals. Call the doctor or return at once if you develop severe pain, repeated vomiting, fever, or jaundice (a yellow color in the skin and whites of the eyes). Prescriptions: Hydrocodone/Acetaminophen [[place] 5-325 mg Tablet] 1 tab PO Q6HP PRN #12 tablet PRN Reason: pain Ondansetron [Zofran Odt 4 mg Tablet] 4 mg PO Q8HP PRN #12 tab.rapdis PRN Reason: nausea Referrals: ROBERT LACEY MD [ACTIVE STAFF] - 07/24/20 (Call Dr. Lacey's office today to schedule a follow-up appointment about your gallbladder)
--- NOTE | 2020-07-24 05:50 | RADIOLOGY REPORT (SQ) ---
Ultrasound of the right upper quadrant of the abdomen: 07/24/2020 4:47 AM EXCHANGE ENGINEER Technique: Multiple grayscale color Doppler images of the right upper quadrant of the abdomen were obtained. Comparison: None available History: 40-year old patient with right upper quadrant abdominal pain. Findings: The visualized portions of the hepatic parenchyma appears diffusely echogenic. There is normal direction of flow seen in the main portal vein. Cholelithiasis is seen. There may be some nonspecific gallbladder wall thickening. Sonographic Ariza's sign was positive. The common duct measures 4-5 mm. The right kidney measures up to 13.2 cm in length. The right kidney demonstrates normal cortical echogenicity with no evidence to suggest hydronephrosis. The pancreatic head is obscured by overlying bowel gas. The IVC abdominal aorta are not well visualized. No free intraperitoneal fluid is seen. Impression: Cholelithiasis is seen. Sonographic Ariza's sign was positive. This could represent acute cholecystitis in the proper clinical setting.
[2020-07-24] MEDS ORDERED: HYDROCODONE/ACETAMINOPHEN 5-325 MG (6 TAB/ER DISP) PO PRN (06:04)
[2020-07-24] MEDS ORDERED: ONDANSETRON ODT 4 MG TAB (6 TAB/ER DISP) PO PRN (06:05)
--- NOTE | 2020-07-24 06:28 | EKG REPORT ---
SEVERITY:- NORMAL ECG - SINUS RHYTHM : Confirmed by: Jarret Feliz MD 24-Jul-2020 06:27:46
[2020-07-24 06:58] VITALS: BP 145/94
== END 2020-07-24 06:57 | disposition home or self-care (01) ==
LOC: ER 23:36
DX: K80.20 Calculus of gallbladder without cholecystitis without obstruction (principal); R10.11 Right upper quadrant pain; R53.1 Weakness; F17.200 Nicotine dependence, unspecified, uncomplicated
CPT/HCPCS: 93005; 99285; 96361; 96374; 96375; 36415; 83690; 85025; 80053; 81001; 76705; 93010; J1885; J2405; J7030